=== PATIENT | male | born 1985 | race Caucasian/White ===

== ENCOUNTER → 2018-02-08 | Emergency (ER) | payer OTHER ==
[~2018-02-08] VITALS: Ht 167.6 cm; Wt 79.8 kg
== END | disposition home or self-care (01) ==
LOC: ER 18:18
DX: K52.9 Noninfective gastroenteritis and colitis, unspecified (principal)

== ENCOUNTER 2020-11-28 11:23 | Outpatient (CLI) | payer OTHER | END 2020-11-28 15:00 | disposition home or self-care (01) | LOC: LAB 11:23 | PROVIDERS: ATTEND Pediatrics Neonatal-Perinatal Medicine | DX: Z03.818 Encounter for observation for suspected exposure to other biological agents ruled out (principal); Z20.828 Contact with and (suspected) exposure to other viral communicable diseases ==

== ENCOUNTER 2022-05-01 14:37 | Emergency (ER) | payer OTHER ==
[~2022-05-01] VITALS: Ht 170.2 cm; Wt 79.8 kg
[2022-05-01] MEDS ORDERED: AUGMENTIN125 MG/5 M (16:26)
[2022-05-01] MEDS ORDERED: NYQUIL (16:28)
[2022-05-01] MEDS ORDERED: FLONASE ALLERG9.9 ML NASAL (17:37)
[2022-05-01] MEDS ORDERED: SINUS RINSE ST1 EACH NASAL (17:37)
[2022-05-01] MEDS ORDERED: ZYRTEC10 M3 PO (17:37)
== END 2022-05-01 18:04 | disposition home or self-care (01) ==
LOC: ER 14:37
DX: R09.81 Nasal congestion (principal); T48.5X5A Adverse effect of other anti-common-cold drugs, initial encounter; J32.8 Other chronic sinusitis

== ENCOUNTER 2023-11-20 19:54 | Emergency (ER) | payer OTHER ==
[~2023-11-20] VITALS: Ht 167.6 cm; Wt 78.5 kg
[~2023-11-20 19:54] MED LIST: AUGMENTIN125 MG/5 M; FLONASE ALLERG9.9 ML NASAL; NYQUIL; SINUS RINSE ST1 EACH NASAL; ZYRTEC10 M3 PO
[2023-11-20 21:37] LABS: HEMATOCRIT 41.3 % (39.0-48.0); HEMOGLOBIN 14.7 g/dL (13-16.00); MEAN CELL VOLUME 89.3 fL (80.0-100.00); MEAN CORPUSCULAR HEMOGLOBIN 31.8 pg (27.00-32.0); MEAN CORPUSCULAR HGB CONC 35.6 g/dl (32.0-36.0); PLATELET COUNT 205 K/uL (150-450); RED BLOOD COUNT 4.62 M/uL (4.00-6.00); RED CELL DISTRIBUTION WIDTH 13.5 % (11.5-14.5)
== END 2023-11-20 22:43 | disposition home or self-care (01) ==
LOC: ER 19:55
PROVIDERS: General Practice
DX: J11.1 Influenza due to unidentified influenza virus with other respiratory manifestations (principal); Z20.822 Contact with and (suspected) exposure to COVID-19

== ENCOUNTER 2025-09-23 05:13 | Emergency (ER) | payer OTHER ==
[~2025-09-23] VITALS: Ht 167.6 cm; Wt 77.1 kg
[2025-09-23] MEDS ORDERED: KETOROLAC TROMETHAMINE 60 MG VIAL IM ONE (06:00)
[2025-09-23] MEDS ORDERED: NORFLEX100MG PO (07:13)
== END 2025-09-23 07:19 | disposition home or self-care (01) ==
LOC: ER 05:13
DX: R07.89 Other chest pain (principal); M94.0 Chondrocostal junction syndrome [Tietze]